=== PATIENT | male | born 1985 | race Caucasian/White ===

== ENCOUNTER 2017-11-05 13:42 | Emergency (ER) | payer BC ==
[2017-11-05] MEDS ORDERED: diPHENhydraMINE PO* 25 MG PO ONE (15:08)
--- NOTE | 2017-11-05 16:05 | UC ---
Psychiatric Complaint HPI - HPI Summary HPI Summary: 32 yo WM h/o panic and anxiety DO c/o feeling nervous, hives diaphoresis 30 minutes after "tasting flounder" after cooking it. Denies SOB or sensation of throat closing but c/o redness on B/L arms and on the face. Denies CP, tongue swelling, numbness or tingling and this feels like his usual panic attack - History Of Current Complaint Chief Complaint: UCGeneralIllness Stated Complaint: PANIC ATTACK Time Seen by Provider: 11/05/17 14:59 Hx Obtained From: Patient Onset/Duration: Sudden Onset, Still Present Timing: Minutes Severity Initially: Moderate Character: Fearful, Anxious Alleviating Factor(s): Nothing - Allergies/Home Medications Allergies/Adverse Reactions: Allergies Allergy/AdvReac Type Severity Reaction Status Date / Time bees Allergy hives/anaph Uncoded 11/05/17 13:56 flounder Allergy Hives Uncoded 11/05/17 13:57 Home Medications: Home Medications NK [No Home Medications Reported] 11/05/17 [History Confirmed 11/05/17] PMH/Surg Hx/FS Hx/Imm Hx - Additional Past Medical History Additional PMH: Panic DO, Anxiety Previously Healthy: Yes - Surgical History Surgical History: None - Social History Alcohol Use: Occasionally Substance Use Type: None, Marijuana Smoking Status (MU): Never Smoked Tobacco Review of Systems Constitutional: Negative Skin: Negative Eyes: Negative ENT: Negative Respiratory: Negative Cardiovascular: Negative Gastrointestinal: Negative Genitourinary: Negative Motor: Negative Neurovascular: Negative Musculoskeletal: Negative Neurological: Negative Psychological: Anxious, Other - panic attack, SEE HPI Is Patient Immunocompromised?: No All Other Systems Reviewed And Are Negative: Yes Physical Exam Triage Information Reviewed: Yes Appearance: Obese Vital Signs: Initial Vital Signs Temp 36.7 C 11/05/17 13:57 Pulse 103 11/05/17 13:57 Resp 21 11/05/17 13:57 BP 133/91 11/05/17 13:57 Pulse Ox 100 11/05/17 13:57 Vital Signs Reviewed: Yes Eye Exam: Normal ENT Exam: Normal ENT: Positive: Pharynx normal, Uvula midline. Negative: Muffled voice, Hoarse voice Dental Exam: Normal Neck exam: Normal Neck: Positive: 1 Respiratory Exam: Normal Respiratory: Positive: Lungs clear Cardiovascular Exam: Normal Abdominal Exam: Normal Musculoskeletal Exam: Normal Neurological Exam: Normal Psychological Exam: Normal Skin Exam: Normal Psych Complaint Course/Dx - Course Course Of Treatment: EKG WNL, panic sx deescalated while in UC after one PO dose of Benadryl, pt to take another Benadryl tonight and to f/u with therapist next week to better control anxiety and panic attacks. - Differential Dx/Diagnosis Differential Diagnosis/HQI/PQRI: Anxiety, Depression, Other - Panic DO Provider Diagnoses: Panic attck. Anxiety DO. Elevated BP w/o dx of HTN Discharge - Discharge Plan Condition: Stable Disposition: HOME Patient Education Materials: Anxiety (ED), Panic Attack (ED) Referrals: No Primary Care Phys,NOPCP [Primary Care Provider] - Additional Instructions: Benadryl as directed, F/u with psych therapist
== END 2017-11-05 17:15 | disposition home or self-care (01) ==
LOC: UCEAST 13:42
DX: F41.0 Panic disorder [episodic paroxysmal anxiety] (principal); R03.0 Elevated blood-pressure reading, without diagnosis of hypertension
CPT/HCPCS: 93005; 99202; A9270-GY; G0463